=== PATIENT | male | born 1955 | race Caucasian/White ===

== ENCOUNTER 2024-02-01 21:05 | Emergency (ER) | payer MEDICARE, SELFPAY ==
[2024-02-01 21:07] VITALS: BP 127/86
--- NOTE | 2024-02-01 22:39 | ED.GENMED ---
History of Present Illness
General
Chief Complaint: Skin Surface Trauma
Source: patient
Exam Limitations: none
Time Seen by Provider: 02/01/24 22:33
Nursing documentation reviewed up to this point in time: agreed with
Travel History
Have you had any contact with someone who has COVID-19?: No
Do you have any symptoms of coronavirus? Fever > 100 degrees, chills, cough, shortness of breath, sore throat, loss of taste or smell, muscle aches, or headache?: No
History of Present Illness
History of Present Illness:
68 y/o M with h/o right hand dominant
here with left 5th finger distal laceration with a knife when he was cutting chicken at home tonight
tetanus utd
full rom
no numbness/tingling/weakness
Past History
Past History
ED Past Surgical History: Urological (prostatectomy)
Social History
Tobacco: Non-smoker
Alcohol: None
Drug: None
Personal:
Living: with family
Review of Systems
Review of Systems
Allergies reviewed?: Yes
All Other Systems: Not applicable
Phy Exam
Physical Exam
Physical Exam:
GENERAL: Alert , in no apparent distress, comfortable at rest
HEAD: NCAT
CV: radial pulse intact, cap refill intact
NEUROLOGICAL: Alert and oriented, no focal neuro deficits, , 5/5 strength, sensation intact, ambulation slight limp right leg
SKIN: Warm and dry, 1 cm laceratino palm of the 5th distal phalanx just distal to DIP
MUSCULOSKELETAL: full rom of the fingertip, no bleeding,
PSYCH: Normal and appropriate interaction.
Course
Vital Signs
Initial and Last Documented VS:
Initial Vital Signs
Temp Pulse Resp BP Pulse Ox
98.0 F 72 16 127/86 100
02/01/24 21:07 02/01/24 21:07 02/01/24 21:07 02/01/24 21:07 02/01/24 21:07
Last Documented Vital Signs
Temp Pulse Resp BP Pulse Ox
98.0 F 72 16 127/86 100
02/01/24 21:07 02/01/24 21:07 02/01/24 21:07 02/01/24 21:07 02/01/24 21:07
Procedures
Laceration Closure
Left Anterior Distal Fifth Finger(s):
Status of Wound: clean
Size of Wound in cm: 1.5
Description of Wound Edges: sharp
Preparation: cleaned with saline
Anesthesia: 1% Lidocaine
Revision/Debridement: routine- no revision
Type of Closure: single layer closure
Skin Closure Material: 5-0 nylon
Number of sutures: 3
MDM/Problems Addressed
Differential Diagnosis Includes:
finger laceration
MDM/Problems Addressed:
68 y/o M with L 5th finger laceration from knife
slightly gaping wound to subcutaneous that opens with movement
no bleeiding
nv intact
tetanus UTD
repair with sutures
*Critical Care Note
Total Time (30-74mins, 75-104mins- exclusive of procedures): Not Applicable
ED Attending Note
-
Portions of this chart may have been created with voice recognition software.� Occasional wrong word or��sound alike� substitutions may have occurred due to the inherent limitations of voice recognition software.
Discharge Plan
Departure
Patient Disposition: Home (Routine Discharge)
Patient with high blood pressure during this ER visit?: No
Condition: Fair
Covid-19: Not Applicable
Discharge Problem:
Finger laceration
Instructions: Laceration Repair With Stitches (DC)
Referrals:
Gilberto Philip MD [Family Provider] - Follow up in 1 week (7-10 days suture removal)
Activity Restrictions/Additional Instructions:
KEEP THE WOUND CLEAN AND DRY FOR 24 HOURS
AFTER THAT YOU CAN GET IT WET IN THE BATH/SHOWER ONCE A DAY AND MAKE SURE IT IS CLEAN AND THERE IS NO DRIED BLOOD ON THE STITCHES
APPLY NEOSPORIN AND A BANDAID
THE STITCHES NEED TO BE REMOVED IN ABOUT 7-10 DAYS, SEE YOUR DOCTOR FOR THIS.
THE LAST DAY BEFORE STITCHES OUT, NO OINTMENT, LEAVE OPEN TO AIR
WATCH FOR SIGNS OF INFECTION AND RETURN NEEDED FOR PAIN, SWELLING, REDNESS, DRAINAGE, BLEEDING.
MOTRIN NEEDED FOR PAIN.
Interventions
Interventions:
*Risk Screen - Suicide Last Done: 02/01/24 22:18
*General Assessment Last Done: 02/01/24 21:07
*Neglect/Abuse Screening Last Done: 02/01/24 22:18
ED- Fall Risk Assessment Last Done: 02/01/24 22:32
*Nursing Disposition Last Done: 02/01/24 23:10
ED-Skin Assessment Last Done: 02/01/24 22:15
Discharge Date and Time
Discharge Date/Time: 02/01/24 23:10
Print Language: SYRIAC
== END 2024-02-01 23:10 | disposition home or self-care (01) ==
LOC: EMR 21:05
PROVIDERS: EMERGENCY PHYSICIAN Student in an Organized Health Care Education/Training Program; FAMILY PHYSICIAN Family Medicine
DX: S61.217A Laceration without foreign body of left little finger without damage to nail, initial encounter (principal); W26.0XXA Contact with knife, initial encounter; Y93.G1 Activity, food preparation and clean up
CPT/HCPCS: 99282; 12001